=== PATIENT | male | born 1985 | race Caucasian/White ===

== ENCOUNTER 2017-02-17 11:57 | Emergency (ER) | payer BC ==
--- NOTE | 2017-02-17 12:31 | UC ---
Dizzy HPI HPI Summary: complaint of intermittent dizziness that started for approx 1 week dizziness worsens for 30 minutes or so- worse with eyes closed difficult to focus with episodes- he feels like he is bobbing around- dizziness is worse when he moves his head has to hold onto the wall to keep stable went on a cruise last week when 1st episode of dizziness started denies trauma or injury denies shortness of breat, chest pain, diaphoresis denies nasal congestion,cough, fever normal appetite, denies diarrhea - History Of Current Complaint Chief Complaint: UCGeneralIllness Stated Complaint: DIZZY,NAUSEA Time Seen by Provider: 02/17/17 12:15 Hx Obtained From: Patient Character: Head Spinning Aggravating Factor(s): Nothing, Change In Head Position Alleviating Factor(s): Closing Eyes Associated Signs And Symptoms: Positive: Negative - Risk Factors Cardiac Risk Factors: Negative CVA Risk Factor: Negative - Allergies/Home Medications Allergies/Adverse Reactions: Allergies Allergy/AdvReac Type Severity Reaction Status Date / Time Meperidine [From Demerol HCl] Allergy Fever Verified 02/17/17 12:24 Penicillins [PCN] Allergy Rash Verified 02/17/17 12:24 Sulfa Antibiotics Allergy Rash Verified 02/17/17 12:24 Home Medications: Home Medications Pantoprazole TAB (NF) [Protonix TAB (NF)] 20 mg PO DAILY 02/17/17 [History Confirmed 02/17/17] PMH/Surg Hx/FS Hx/Imm Hx Previously Healthy: Yes Endocrine History Of: Denies: Diabetes Cardiovascular History Of: Denies: Cardiac Disorders, Hypertension, Myocardial Infarction, Congestive Heart Failure, Atrial Fibrillation Respiratory History Of: Denies: COPD, Asthma, Bronchitis, Pneumonia, Pulmonary Embolism Psychological History Of: Denies: Anxiety - Surgical History Surgical History: Yes Surgery Procedure, Year, and Place: Back surgeries x3, L5-S1 vertabra degeneration. right hand surgery x6 from hand being crushed. - Family History Known Family History: Positive: None Negative: Cardiac Disease, Hypertension, Diabetes - Social History Alcohol Use: Rare Substance Use Type: None Smoking Status (MU): Never Smoked Tobacco Have You Smoked in the Last Year: No - Immunization History Most Recent Influenza Vaccination: June 2015 Review of Systems Constitutional: Negative Skin: Negative Eyes: Negative ENT: Negative Respiratory: Negative Cardiovascular: Negative Gastrointestinal: Negative Genitourinary: Negative Motor: Negative Neurovascular: Negative Musculoskeletal: Negative Neurological: Other - dizziness Psychological: Negative All Other Systems Reviewed And Are Negative: Yes Physical Exam Triage Information Reviewed: Yes Appearance: No Pain Distress, Well-Nourished Vital Signs: Initial Vital Signs Temp 98.6 F 02/17/17 12:20 Pulse 73 02/17/17 12:20 Resp 14 02/17/17 12:20 BP 124/85 02/17/17 12:20 Pulse Ox 100 02/17/17 12:20 Vital Signs Reviewed: Yes Eyes: Positive: Conjunctiva Clear ENT: Positive: Pharynx normal, Nasal congestion, Nasal drainage, TM bulging. Negative: TM red Neck: Positive: No Lymphadenopathy Respiratory: Positive: Lungs clear, Normal breath sounds, No respiratory distress, No accessory muscle use Cardiovascular: Positive: RRR, No Murmur, Pulses Normal Abdomen Description: Positive: Nontender, No Organomegaly, Soft Bowel Sounds: Positive: Present Musculoskeletal Exam: Normal Neurological: Positive: Alert, Other: - Cranial nerves II through XII are grossly intact. Muscle strength is graded 5/5 in the upper and lower extremities bilaterally. Deep tendon reflexes are symmetrical lower extremities bilaterally. Sensation is intact to light touch and vibration. Gait is normal. Romberg, [id number], rapid alternating movements and heel-to -pierre are all normal. There is no ataxia seen on gait testing. Tone is normal. No pronator drift is seen. Psychological Exam: Normal Skin Exam: Normal Dizzy Course/Dx - Course Course Of Treatment: exam completed. no neuro deficits, no signs/symptoms of cardiovascular involvement. dizziness is worse with head movement and currently has eustachion tube dysfuntion. will treat with flonase and meclizine- followup with PCP. discussed emergent symptoms and when to seek emergent care - Differential Dx/Diagnosis Differential Diagnosis/HQI/PQRI: Benign Paroxysmal Positional Vertigo, Meniere' s Disease Provider Diagnoses: vertigo, eustachion tube dysfunction Discharge - Discharge Plan Condition: Stable Disposition: HOME Prescriptions: Fluticasone NASAL SPRAY 50MCG* [Flonase NASAL SPRAY 50MCG*] 2 spray BOTH NARES DAILY #1 btl Meclizine TAB* [Antivert 12.5 TAB*] 25 mg PO TID #15 tab Patient Education Materials: Vertigo (ED) Referrals: Non Staff,Doctor [Primary Care Provider] - Additional Instructions: Please start meclizine and nose drops as directed Increase fluids and rest Take acetaminophen or ibuprofen for fever or pain Please review your discharge instructions. If your symptoms do not improve please call your primary care provider or return to urgent care.
[2017-02-17 12:47] VITALS: BP 124/85
== END 2017-02-17 13:00 | disposition home or self-care (01) ==
LOC: UCCORT 11:57
DX: R42 Dizziness and giddiness (principal); H69.90 Unspecified Eustachian tube disorder, unspecified ear; Z88.5 Allergy status to narcotic agent; Z88.0 Allergy status to penicillin; Z88.2 Allergy status to sulfonamides
CPT/HCPCS: 99212; G0463

== ENCOUNTER 2017-03-10 21:21 | Emergency (ER) | payer BC ==
[2017-03-10 22:12] VITALS: BP 120/75
--- NOTE | 2017-03-10 23:23 | UC ---
Skin Complaint HPI - HPI Summary HPI Summary: The patient comes in today for: 1. Swollen and red masses in both axilla and near the right nipple area. Onset: He noticed these yesterday. Palliative/provocative: Tender to touch. Quality: Tenderness/soreness Region: Left axilla, right axilla Severity: 6/10 Time: Constant. Associated symptoms: Fevers: None. No discharge. Previous problems: None. * - History of Current Complaint Chief Complaint: UCGeneralIllness Time Seen by Provider: 03/10/17 22:56 Stated Complaint: SWOLLEN GLANDS Hx Obtained From: Patient - Allergy/Home Medications Allergies/Adverse Reactions: Allergies Allergy/AdvReac Type Severity Reaction Status Date / Time Meperidine [From Demerol HCl] Allergy Fever Verified 03/10/17 21:58 Penicillins [PCN] Allergy Rash Verified 03/10/17 21:58 Sulfa Antibiotics Allergy Rash Verified 03/10/17 21:58 Home Medications: Home Medications Ibuprofen TAB* [Advil TAB*] 400 mg PO Q6H PRN 03/10/17 [History Confirmed ] Review of Systems Constitutional: Negative Skin: Rash Eyes: Negative ENT: Negative Respiratory: Negative Cardiovascular: Negative Gastrointestinal: Negative Genitourinary: Negative All Other Systems Reviewed And Are Negative: Yes PMH/Surg Hx/FS Hx/Imm Hx Previously Healthy: Yes Endocrine History Of: Denies: Diabetes, Thyroid Disease, Hyperthyroidism, Hypothyroidism, Dyslipidemia Cardiovascular History Of: Denies: Cardiac Disorders, Hypertension, Pacemaker/ICD, Myocardial Infarction , Congestive Heart Failure, Atrial Fibrillation, Deep Vein Thrombosis, Bleeding Disorders Respiratory History Of: Denies: COPD, Asthma, Bronchitis, Pneumonia, Pulmonary Embolism GI/ History Of: Denies: Gastroesophageal Reflux, Ulcer, Gastrointestinal Bleed, Gall Bladder Disease, Kidney Stones, Diverticulitis, Renal Disease, Urosepsis Neurological History Of: Denies: TIA, CVA, Dementia, Seizures, Migraine Psychological History Of: Denies: Anxiety, Depression, Bipolar Disorder, Schizophrenia, Post Traumatic Stress Disorder Cancer History Of: Denies: Lung Cancer, Colorectal Cancer, Breast Cancer, Prostate Cancer, Cervical Cancer Other History Of: Negative For: HIV, Hepatitis B, Hepatitis C, Anticoagulant Therapy - Surgical History Surgical History: Yes Surgery Procedure, Year, and Place: Back surgeries x3, L5-S1 vertabra degeneration. right hand surgery x6 from hand being crushed. - Family History Known Family History: Positive: Hypertension Negative: Cardiac Disease, Diabetes - Social History Occupation: Employed Full-time Alcohol Use: Rare Substance Use Type: None Smoking Status (MU): Never Smoked Tobacco Have You Smoked in the Last Year: No - Immunization History Most Recent Influenza Vaccination: Fall 2015 Physical Exam Triage Information Reviewed: Yes Appearance: Well-Appearing, No Pain Distress, Well-Nourished Vital Signs: Initial Vital Signs Temp 98 F 03/10/17 21:53 Pulse 84 03/10/17 21:53 Resp 16 03/10/17 21:53 BP 120/75 03/10/17 21:53 Pulse Ox 99 03/10/17 21:53 Vital Signs Reviewed: Yes Eyes: Positive: Conjunctiva Clear. Negative: Discharge ENT: Positive: Hearing grossly normal. Negative: Pharyngeal erythema, Nasal congestion, Nasal drainage, TM bulging, TM dull, TM red, Tonsillar swelling, Tonsillar exudate Dental: Negative: Gross Decay/Caries @, Dental Fracture @ Neck: Positive: Supple, Nontender, No Lymphadenopathy. Negative: Nuchal Rigidity Respiratory: Positive: Chest non-tender, Lungs clear, No respiratory distress, No accessory muscle use Cardiovascular: Positive: RRR, No Murmur Abdomen Description: Positive: Nontender, No Organomegaly, Soft Musculoskeletal: Positive: Strength Intact, ROM Intact, No Edema Neurological: Positive: Alert, Muscle Tone Normal Psychological: Positive: Age Appropriate Behavior, Consolable Skin: Positive: Other - The patient has three 0.5 cm rounded subcutaneous masses in the left axilla slightly tender. No head to them. There is erythema around them, but no streaking centrally. There is also a similar sized mass subcutaneous superior to the right nipple with streaking towards the right axilla. Course/Dx - Course Course Of Treatment: Patient is allergic to PCN and sulfa--will treat with zithromax and doxycycline. He is to be seen in several days and use warm compresses for 20 minutes 4-5 times a day. - Diagnoses Provider Diagnoses: Left axilla cellulitis, infected epidermal cysts. Right epidermal cyst, infected left superior anterior chest. Discharge - Discharge Plan Condition: Stable Disposition: HOME Patient Education Materials: Cellulitis (ED), Epidermal Inclusion Cysts (ED), Lymphangitis (ED) Referrals: Non Staff,Doctor [Primary Care Provider] - 3 Days (Please see your primary care provider in about 3 days to see how well you are doing. If you get worse, please be seen sooner. If you can't get in timely, you can come to see us.)
[2017-03-10] MEDS ORDERED: DOXYcycline CAP(*) 100 MG PO ONE (23:28)
[2017-03-10] MEDS ORDERED: Azithromycin TAB* 250 MG PO ONE (23:29)
== END 2017-03-10 23:38 | disposition home or self-care (01) ==
LOC: UCCORT 21:21
DX: L03.112 Cellulitis of left axilla (principal); L72.0 Epidermal cyst; Z88.5 Allergy status to narcotic agent; Z88.0 Allergy status to penicillin; Z88.2 Allergy status to sulfonamides
CPT/HCPCS: 99212; A9270-GY; G0463

== ENCOUNTER 2017-11-25 10:01 | Emergency (ER) | payer BC ==
[2017-11-25 10:47] VITALS: BP 123/75
--- NOTE | 2017-11-25 11:02 | UC ---
Throat Pain/Nasal King HPI - HPI Summary HPI Summary: Pt c/o right side throat pain X 7 days. Denies fever, chills, cough, nasal congestion, body aches. Pt states throat is painful with swallowing. - History of Current Complaint Chief Complaint: UCGeneralIllness Stated Complaint: THROAT COMPLAINT Time Seen by Provider: 11/25/17 10:55 Hx Obtained From: Patient Onset/Duration: Sudden Onset, Lasting Days - 7 Severity: Mild Pain Intensity: 6 Cough: None Associated Signs & Symptoms: Positive: Dysphagia - Allergies/Home Medications Allergies/Adverse Reactions: Allergies Allergy/AdvReac Type Severity Reaction Status Date / Time MS Meperidine Allergy Fever Verified 11/25/17 10:45 [From Demerol HCl] MS Penicillins [PCN] Allergy Rash Verified 11/25/17 10:45 MS Sulfa Antibiotics Allergy Rash Verified 11/25/17 10:45 [Sulfa Antibiotics] PMH/Surg Hx/FS Hx/Imm Hx Previously Healthy: Yes Other History Of: Negative For: HIV, Hepatitis B, Hepatitis C, Anticoagulant Therapy - Surgical History Surgical History: Yes Surgery Procedure, Year, and Place: Back surgeries x3, L5-S1 vertabra degeneration. right hand surgery x6 from hand being crushed. - Family History Known Family History: Positive: Hypertension Negative: Cardiac Disease, Diabetes - Social History Occupation: Employed Full-time Lives: With Family Alcohol Use: Rare Substance Use Type: None Smoking Status (MU): Never Smoked Tobacco Have You Smoked in the Last Year: No - Immunization History Most Recent Influenza Vaccination: June 2015 Review of Systems Constitutional: Negative Skin: Negative Eyes: Negative ENT: Sore Throat Respiratory: Negative Cardiovascular: Negative Gastrointestinal: Negative Genitourinary: Negative Motor: Negative Neurovascular: Negative Musculoskeletal: Negative Neurological: Negative Psychological: Negative Is Patient Immunocompromised?: No All Other Systems Reviewed And Are Negative: Yes Physical Exam Triage Information Reviewed: Yes Appearance: Well-Appearing Vital Signs: Initial Vital Signs Temp 97.9 F 11/25/17 10:45 Pulse 84 11/25/17 10:45 Resp 16 11/25/17 10:45 BP 123/75 11/25/17 10:45 Pulse Ox 100 11/25/17 10:45 Vital Signs Reviewed: Yes Eye Exam: Normal ENT Exam: Other ENT: Positive: Tonsillar swelling - right tonsil, mild swelling Dental Exam: Normal Neck exam: Normal Neck: Positive: Enlarged Nodes @ - right submaxillary Respiratory Exam: Normal Cardiovascular Exam: Normal Musculoskeletal Exam: Normal Neurological Exam: Normal Psychological Exam: Normal Skin Exam: Normal Throat Pain/Nasal Course/Dx - Differential Dx/Diagnosis Differential Diagnosis/HQI/PQRI: Influenza, Pharyngitis, Tonsillitis, URI Provider Diagnoses: Pharyngitis Discharge - Discharge Plan Condition: Stable Disposition: HOME Patient Education Materials: Pharyngitis (ED) Referrals: [facility] [Outside] Non Staff,Doctor [Primary Care Provider] - Additional Instructions: Please follow up with your PCP or return to clinic as needed.
== END 2017-11-25 11:14 | disposition home or self-care (01) ==
LOC: UCCORT 10:01
DX: J02.9 Acute pharyngitis, unspecified (principal)
CPT/HCPCS: 99211; G0463